=== PATIENT | female | born 1945 | race Caucasian/White ===

== ENCOUNTER 2017-08-06 14:50 | Emergency (ER) | payer MEDICARE ==
[~2017-08-06] VITALS: Ht 170.2 cm; Wt 91.6 kg
[~2017-08-06 14:50] MED LIST: MULTI VIT PO
[2017-08-06 14:59] VITALS: BP 113/56; PULSE 62; RESP 18; TEMP 97.6; O2SAT 97
[2017-08-06] MEDS ORDERED: CENTCHW4 CHEW (15:14)
--- NOTE | 2017-08-06 16:17 | RADRPT ---
EXAM DATE/TIME: 08/06/2017 15:30 [facility] COMPARISON: No previous studies available for comparison. INDICATIONS : Fell, left knee pain MEDICAL HISTORY : Left knee fracture SURGICAL HISTORY : None. ENCOUNTER: Initial ACUITY: 1 day PAIN SCORE: 9/10 LOCATION: Left knee FINDINGS: No fracture or dislocation. Patellar enthesophyte at the quadriceps insertion. Tiny knee joint effusi on. CONCLUSION: Small knee joint effusion. Vivek Murrell MD on August 06, 2017 at 16:15 Board Certified Radiologist. This report was verified electronically.
--- NOTE | 2017-08-06 16:28 | PD ---
HPI Chief Complaint: Musculoskeletal Complaint Time Seen by Provider: 16:14 Travel History International Travel<30 days: No Contact w/Intl Traveler<30days: No Traveled to known affect area: No History of Present Illness HPI 72-year-old female here for a slip and fall, injuring her left knee today at 1: 30p. She says she was walking with her and slipped on some tile and fell landing on her knee and right buttocks. Today she complains of left anterior knee pain with swelling. She is able to ambulate without assistance and denies crepitus or leg 'giving out'. She has not taken any medication for this today and says her pain is mild without radiation. She denies pain anywhere else. Denies LOC, head injury, fever, chills, chest pain, shortness of breath or any other complaints. 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 HEAD: Atraumatic. Normocephalic. EYES: Pupils equal and round. No scleral icterus. No injection or drainage. NECK: Trachea midline. No JVD. CARDIOVASCULAR: Regular rate and rhythm. No murmur appreciated. RESPIRATORY: No accessory muscle use. Clear to auscultation. Breath sounds equal bilaterally. GASTROINTESTINAL: Abdomen soft, non-tender, nondistended. Hepatic and splenic margins not palpable. MUSCULOSKELETAL: No obvious deformities. No clubbing. No cyanosis. Left anterior knee Mild edema with small 5 mm contusion. No crepitus. Full range of motion but painful. Anterior drawer with pain but without laxity,varus/valgus negative. NEUROLOGICAL: Awake and alert. No obvious cranial nerve deficits. Motor grossly within normal limits. Normal speech. Sensory intact and normal. PSYCHIATRIC: Appropriate mood and affect; insight and judgment normal. Data Data Last Documented VS Vital Signs Date Time Temp Pulse Resp B/P (MAP) Pulse Ox O2 Delivery O2 Flow Rate FiO2 08/06/17 14:59 97.6 62 18 113/56 (75) 97 Orders Orders Knee, Complete (4vws) (08/06/17 ) MDM Medical Decision Making Medical Screen Exam Complete: Yes Emergency Medical Condition: Yes Differential Diagnosis Left Knee fracture versus contusion versus bursitis Narrative Course 72 female presented to the emergency department for a left knee after a mechanical fall that occurred at 1:30pm. She was able to ambulate right after the incident and has not taken anything for the pain currently. Imaging study negative for acute process. Her exam is consistent with a contusion of the knee. Patient may take [id number] Aleve or other incident per package instructions.. She is advised to return to the emergency department if pain worsens or persists. Diagnosis Primary Impression: Contusion, knee Qualified Codes: S80.02XA - Contusion of left knee, initial encounter Referrals: Orthopedist Primary Care Physician Additional Instructions: Left knee : Rest, ice, Ar wrap, elevate May use Motrin or Tylenol per package instructions for pain relief. If knee pain persists or worsens return to the emergency department for treatment. Follow-up with your primary care physician and orthopedic further treatment. Disposition: 01 DISCHARGE HOME Condition: Stable Apryl Patten Aug 06, 2017 16:28
[2017-08-06 16:45] VITALS: BP 122/74
== END 2017-08-06 16:46 | disposition home or self-care (01) ==
LOC: PHEFT 14:50
DX: S80.02XA Contusion of left knee, initial encounter (principal); W01.0XXA Fall on same level from slipping, tripping and stumbling without subsequent striking against object, initial encounter; Y93.01 Activity, walking, marching and hiking; Y99.8 Other external cause status
CPT/HCPCS: 73564; 99283

== ENCOUNTER 2017-12-04 04:49 | Emergency (ER) | payer MEDICARE ==
[~2017-12-04] VITALS: Ht 170.2 cm; Wt 93.0 kg
[~2017-12-04 04:49] MED LIST changes: +CENTCHW4 CHEW; -MULTI VIT PO
[2017-12-04 05:01] VITALS: BP 130/63; PULSE 71; RESP 18; TEMP 97.8; O2SAT 97
[2017-12-04 05:40] LABS: AUTOMATED NEUTROPHIL # 3.4 TH/MM3 (1.8-7.7); BASOPHIL # 0.1 TH/MM3 (0-0.2); EOSINOPHIL # 0.2 TH/MM3 (0-0.4); EOSINOPHIL % 3.1 % (0.0-4.0); HEMOGLOBIN 14.4 GM/DL (11.6-15.3); LYMPH % 34.2 % (9.0-44.0); LYMPHOCYTE # 2.1 TH/MM3 (1.0-4.8); MEAN CELL VOLUME 90.4 FL (80.0-100.0); MEAN CORPUSCULAR HEMOGLOBIN 29.6 PG (27.0-34.0); MEAN CORPUSCULAR HGB CONC 32.7 % (32.0-36.0); MEAN PLATELET VOLUME 8.4 FL (7.0-11.0); MONO % 4.8 % (0.0-8.0); MONOCYTE # 0.3 TH/MM3 (0-0.9); NEUT % 56.9 % (16.0-70.0); PLATELET COUNT 246 TH/MM3 (150-450); RED BLOOD COUNT 4.86 MIL/MM3 (4.00-5.30); RED CELL DISTRIBUTION WIDTH 13.3 % (11.6-17.2); WHITE BLOOD COUNT 6.1 TH/MM3 (4.0-11.0)
[2017-12-04] MEDS ORDERED: LOTR15T TOPICAL (05:40)
[2017-12-04 05:48] VITALS: O2SAT 98
[2017-12-04 05:48] LABS: CHLORIDE 107 MEQ/L (98-107); SODIUM (NA) 139 MEQ/L (136-145)
[2017-12-04 05:51] LABS: CALCIUM 8.4 MG/DL (8.5-10.1)
[2017-12-04 05:52] LABS: BLOOD UREA NITROGEN 13 MG/DL (7-18); GLUCOSE,RANDOM 110 MG/DL (74-106)
[2017-12-04 05:55] LABS: CREATININE 0.96 MG/DL (0.50-1.00); GLOMERULAR FILTRATION RATE 57 ML/MIN (>89)
[2017-12-04 06:00] LABS: TROPONIN I LESS THAN 0.02 NG/ML (0.02-0.05)
--- NOTE | 2017-12-04 06:09 | RADRPT ---
EXAM DATE/TIME: 12/04/2017 05:46 [facility] COMPARISON: No previous studies available for comparison. INDICATIONS : Palpitations. MEDICAL HISTORY : Left knee fracture SURGICAL HISTORY : None. ENCOUNTER: Initial ACUITY: 1 day PAIN SCORE: 2/10 LOCATION: Bilateral chest FINDINGS: PA and lateral views of the chest demonstrate the lungs to be symmetrically aerated without evidence of mass, infiltrate or effusion. The cardiomediastinal contours are unremarkable. Osseous structure s are intact. CONCLUSION: No acute disease. Vivek Murrell MD on December 04, 2017 at 6:07 Board Certified Radiologist. This report was verified electronically.
[2017-12-04 06:44] VITALS: BP 113/54; PULSE 73; RESP 16; O2SAT 96
--- NOTE | 2017-12-04 06:55 | PD ---
HPI Chief Complaint: Cardiac Complaint Time Seen by Provider: 06:46 Travel History International Travel<30 days: No Contact w/Intl Traveler<30days: No Traveled to known affect area: No History of Present Illness HPI The patient is a 72-year-old female with no known history of heart disease but who does have a history of anxiety who states she wakes up around 3 in the morning and feels that "valves are opening and closing and blood is rushing through". She denies any syncopal or near syncopal spells and may feel occasional "skipped beat". There is no chest pain, shortness of breath, nausea , diaphoresis, focal neurologic change present with these symptoms. The patient states she had similar episode years ago which were thought to be anxiety. She has no pain and her discomfort as a 0/10. PFSH Past Medical History Anxiety: Yes Diminished Hearing: No Influenza Vaccination: No ?: Not Menopausal: Yes Past Surgical History Other Surgery: Yes (H[employer] LASER SURGERY IN 1985) Social History Alcohol Use: Yes (WINE X 3 DAYS A WEEK) Tobacco Use: No Substance Use: No Allergies-Medications (Allergen,Severity, Reaction): Coded Allergies: No Known Allergies (Verified Adverse Reaction, Unknown, 12/04/17) Reported Meds & Prescriptions Reported Meds & Active Scripts Active Reported Lotrisone Topical (Betamethasone/Clotrimazole) 1-0.05% Cream 1 Applic TOPICAL DIRECTED Centrum (Multiple Vitamins W/ Minerals) 1 Chew 1 Tab CHEW DAILY Review of Systems Except as stated in HPI: all other systems reviewed are Neg Physical Exam Narrative GENERAL: The patient is alert, oriented 3 in no apparent distress. Her SKIN: Focused skin assessment warm/dry. HEAD: Atraumatic. Normocephalic. EYES: Pupils equal and round. No scleral icterus. No injection or drainage. ENT: No nasal bleeding or discharge. Mucous membranes pink and moist. NECK: Trachea midline. No JVD. CARDIOVASCULAR: Regular rate and rhythm. No murmur appreciated. RESPIRATORY: No accessory muscle use. Clear to auscultation. Breath sounds equal bilaterally. GASTROINTESTINAL: Abdomen soft, non-tender, nondistended. Hepatic and splenic margins not palpable. MUSCULOSKELETAL: No obvious deformities. No clubbing. No cyanosis. No edema. NEUROLOGICAL: Awake and alert. No obvious cranial nerve deficits. Motor grossly within normal limits. Normal speech. PSYCHIATRIC: Appropriate mood and affect; insight and judgment normal. Data Data Last Documented VS Vital Signs Date Time Temp Pulse Resp B/P (MAP) Pulse Ox O2 Delivery O2 Flow Rate FiO2 12/04/17 06:44 73 16 113/54 (73) 96 12/04/17 05:48 Room Air 12/04/17 05:01 97.8 Orders Orders Electrocardiogram (12/04/17 05:22) Complete Blood Count With Diff (12/04/17 05:22) Basic Metabolic Panel (Bmp) (12/04/17 05:22) Ckmb (Isoenzyme) Profile (12/04/17 05:22) Troponin I (12/04/17 05:22) Iv Access Insert/Monitor (12/04/17 05:22) Ecg Monitoring (12/04/17 05:22) Oxygen Administration (12/04/17 05:22) Oximetry (12/04/17 05:22) Chest, Pa & Lat (12/04/17 05:22) Labs Laboratory Tests Test 12/04/17 05:25 White Blood Count 6.1 TH/MM3 Red Blood Count 4.86 MIL/MM3 Hemoglobin 14.4 GM/DL Hematocrit 44.0 % Mean Corpuscular Volume 90.4 FL Mean Corpuscular Hemoglobin 29.6 PG Mean Corpuscular Hemoglobin Concent 32.7 % Red Cell Distribution Width 13.3 % Platelet Count 246 TH/MM3 Mean Platelet Volume 8.4 FL Neutrophils (%) (Auto) 56.9 % Lymphocytes (%) (Auto) 34.2 % Monocytes (%) (Auto) 4.8 % Eosinophils (%) (Auto) 3.1 % Basophils (%) (Auto) 1.0 % Neutrophils # (Auto) 3.4 TH/MM3 Lymphocytes # (Auto) 2.1 TH/MM3 Monocytes # (Auto) 0.3 TH/MM3 Eosinophils # (Auto) 0.2 TH/MM3 Basophils # (Auto) 0.1 TH/MM3 CBC Comment DIFF FINAL Differential Comment Blood Urea Nitrogen 13 MG/DL Creatinine 0.96 MG/DL Random Glucose 110 MG/DL Calcium Level 8.4 MG/DL Sodium Level 139 MEQ/L Potassium Level 3.7 MEQ/L Chloride Level 107 MEQ/L Carbon Dioxide Level 26.0 MEQ/L Anion Gap 6 MEQ/L Estimat Glomerular Filtration Rate 57 ML/MIN Total Creatine Kinase 51 U/L Troponin I LESS THAN 0.02 NG/ML MDM Medical Decision Making Medical Screen Exam Complete: Yes Emergency Medical Condition: Yes Medical Record Reviewed: Yes Interpretation(s) EKG shows sinus rhythm with a rate of 67. There is right bundle branch block and marked left axis deviation present. No acute ST elevation or depression is present. The CBC is normal. The basic metabolic profile shows a GFR 57, calcium 8.4 but is otherwise normal. The cardiac enzymes are normal. Differential Diagnosis Anxiety, PVCs, PACs, acute coronary syndrome-unlikely, electrolyte disorder, renal insufficiency, congestive heart failure-highly unlikely Narrative Course The patient may have anxiety. We have observed this patient,s rhythm since she has been in the emergency department and there are no PACs or PVCs or any type of irregularity. She does not give a history of a continuous rhythm disturbance , only occasional and apparently single flip-flop's of the heart. We observed none of this here in emergency department. The cardiac enzymes are normal and the electrolytes are normal. Her slightly decreased GFR may be due to slight dehydration. Plan: The patient should follow-up with her primary care physician who may wish to put her on a Holter monitor or other device. Diagnosis Primary Impression: Intermittent palpitations Additional Instructions: As we discussed, follow-up with your primary care physician. He may wish to put on a monitor the records your heart beat over a period of days. Med/Other Pt SpecificInfo: No Change to Meds Disposition: 01 DISCHARGE HOME Condition: Stable Joselito Uriostegui MD Dec 04, 2017 06:55
--- NOTE | 2017-12-04 12:43 | EKG ---
Date Performed: 12/04/2017 Time Performed: 05:29:18 PTAGE: 72 years EKG: Sinus rhythm MARKED LEFT AXIS DEVIATION RIGHT BUNDLE BRANCH BLOCK ABNORMAL ECG Compared to PREVIOUS TRACING , patient has evolved from incomplete right bundle branch block to compl ete right bundle branch block. PREVIOUS TRACIN06/12/1998 09.13 DOCTOR: Miky Amado Interpretating Date/Time 12/04/2017 12:43:00
== END 2017-12-04 07:13 | disposition home or self-care (01) ==
LOC: PHED 04:49
DX: R00.2 Palpitations (principal); F41.9 Anxiety disorder, unspecified; I45.10 Unspecified right bundle-branch block; R94.31 Abnormal electrocardiogram [ECG] [EKG]
CPT/HCPCS: 71046; 80048; 82550; 84484; 85025; 93005